=== PATIENT | female | born 1970 | race Caucasian/White ===

== ENCOUNTER 2018-02-12 20:02 | Inpatient (IN) | payer OTHER ==
[2018-02-12] MEDS ORDERED: NITROGLYCERIN (SL) 0.4 MG TAB SL (21:30)
[2018-02-12] MEDS ORDERED: ONDANSETRON 4 MG INJ IV (21:30)
[2018-02-12] MEDS ORDERED: ACETAMINOPHEN 325 MG TAB PO (21:30)
[2018-02-12] MEDS ORDERED: DOCUSATE SODIUM 100 MG CAP PO (21:30)
[2018-02-12] MEDS ORDERED: hydrALAzine 20 MG INJ IV (21:30)
[2018-02-12] MEDS: NACL 0.9% 3 ML SYG IV (22:48)
[2018-02-13 00:34] LABS: ADD MAN DIFF? NO
[2018-02-13 00:40] LABS: WHITE BLOOD COUNT 10.2 10^3/ul (4.8-10.8)
[2018-02-13 00:40] LABS: BASOPHIL # 0.1 10^3/ul (0.0-0.1); BASOPHILS % 0.6 % (0.0-2.0); EOSINOPHILS # 0.3 10^3/ul (0.0-0.5); EOSINOPHILS % 3.2 % (0.0-7.0); HEMATOCRIT 34.2 % (37.0-47.0); HEMOGLOBIN 11.7 g/dl (12.0-16.0); LYMPHOCYTES # 2.9 10^3/ul (0.8-2.9); LYMPHOCYTES % 28.3 % (15.0-51.0); MEAN CORPUSCULAR HEMOGLOBIN 26.4 pg (29.0-33.0); MEAN CORPUSCULAR HGB CONC 34.2 g/dl (32.0-37.0); MEAN PLATELET VOLUME 10.1 fl (7.4-10.4); MONOCYTE # 0.7 10^3/ul (0.3-0.9); MONOCYTES % 6.7 % (0.0-11.0); NEUTROPHIL # 6.2 10^3/ul (1.6-7.5); NEUTROPHILS % 60.7 % (39.0-77.0); PLATELET COUNT 316 10^3/UL (140-415); RED BLOOD COUNT 4.44 10^6/ul (4.20-5.40); RED CELL DISTRIBUTION WIDTH 15.3 % (11.5-14.5)
[2018-02-13 00:52] LABS: ANION GAP 9 (8-16); BLOOD UREA NITROGEN 12 mg/dl (7-20); CALCIUM 9.9 mg/dl (8.4-10.2); CARBON DIOXIDE 28 mmol/L (21-31); CHLORIDE 105 mmol/L (97-110); CREATININE 0.68 mg/dl (0.44-1.00); GLUCOSE 117 mg/dl (70-220); POTASSIUM 3.4 mmol/L (3.5-5.1); SODIUM 139 mmol/L (135-144)
[2018-02-13] MEDS: morphine 2 MG INJ IV (01:01)
[2018-02-13] MEDS: LORAZEPAM 2 MG INJ IV ×3 (03:00→20:06)
[2018-02-13 06:38] LABS: ADD MAN DIFF? NO
[2018-02-13 06:48] LABS: BASOPHIL # 0.1 10^3/ul (0.0-0.1); BASOPHILS % 0.7 % (0.0-2.0); EOSINOPHILS # 0.3 10^3/ul (0.0-0.5); EOSINOPHILS % 3.1 % (0.0-7.0); HEMOGLOBIN 11.8 g/dl (12.0-16.0); LYMPHOCYTES % 37.8 % (15.0-51.0); MEAN CORPUSCULAR HEMOGLOBIN 26.3 pg (29.0-33.0); MEAN CORPUSCULAR HGB CONC 33.7 g/dl (32.0-37.0); MEAN PLATELET VOLUME 10.3 fl (7.4-10.4); MONOCYTE # 0.8 10^3/ul (0.3-0.9); MONOCYTES % 7.1 % (0.0-11.0); NEUTROPHIL # 5.4 10^3/ul (1.6-7.5); NEUTROPHILS % 50.9 % (39.0-77.0); PLATELET COUNT 328 10^3/UL (140-415); RED BLOOD COUNT 4.49 10^6/ul (4.20-5.40); RED CELL DISTRIBUTION WIDTH 15.4 % (11.5-14.5)
[2018-02-13 06:48] LABS: WHITE BLOOD COUNT 10.5 10^3/ul (4.8-10.8)
[2018-02-13 07:23] LABS: ALANINE AMINOTRANSFERASE 27 IU/L (13-69); ALBUMIN 3.9 g/dl (3.3-4.9); ALBUMIN/GLOBULIN RATIO 1.25; ALKALINE PHOSPHATASE 108 IU/L (42-121); ANION GAP 12 (8-16); ASPARTATE AMINO TRANSFERASE 18 IU/L (15-46); BILIRUBIN,INDIRECT 0.4 mg/dl (0-1.1); BILIRUBIN,TOTAL 0.4 mg/dl (0.2-1.3); BLOOD UREA NITROGEN 13 mg/dl (7-20); CALCIUM 9.5 mg/dl (8.4-10.2); CARBON DIOXIDE 26 mmol/L (21-31); CHLORIDE 106 mmol/L (97-110); CHOL/HDL RATIO 5.4 RATIO; CHOLESTEROL 216 mg/dl (100-200); CREATININE 0.71 mg/dl (0.44-1.00); GLUCOSE 89 mg/dl (70-220); HDL CHOLESTEROL 40 mg/dl (34-88); LDL CHOLESTEROL,CALCULATED 122 mg/dl; POTASSIUM 3.8 mmol/L (3.5-5.1); SODIUM 140 mmol/L (135-144); TRIGLYCERIDES 268 mg/dl (0-149)
[2018-02-13 07:27] LABS: HEMOGLOBIN A1C 5.5 % (0-5.9)
[2018-02-13] MEDS: ASPIRIN 81 MG TAB PO (09:30)
[2018-02-13] MEDS: PANTOPRAZOLE (EC) 40 MG TAB PO (09:30)
[2018-02-13] MEDS ORDERED: HYDROCODONE/APAP (5/325) TAB PO (10:00)
[2018-02-13] MEDS: ACET/BUTAL/CAFF TAB PO (11:26)
[2018-02-13] MEDS ORDERED: ATORVASTATIN 80 MG TAB (19:56)
[2018-02-13] MEDS: ATORVASTATIN 80 MG TAB PO (20:06)
[2018-02-14] MEDS: PANTOPRAZOLE (EC) 40 MG TAB PO (05:31)
[2018-02-14 06:00] LABS: ADD MAN DIFF? NO
[2018-02-14 06:06] LABS: MONOCYTE # 0.8 10^3/ul (0.3-0.9)
[2018-02-14 06:21] LABS: BASOPHIL # 0.1 10^3/ul (0.0-0.1); BASOPHILS % 0.5 % (0.0-2.0); EOSINOPHILS # 0.3 10^3/ul (0.0-0.5); EOSINOPHILS % 2.4 % (0.0-7.0); HEMOGLOBIN 12.7 g/dl (12.0-16.0); LYMPHOCYTES # 3.1 10^3/ul (0.8-2.9); MEAN CORPUSCULAR HGB CONC 33.4 g/dl (32.0-37.0); MEAN CORPUSCULAR VOLUME 77.7 fl (82.0-101.0); MEAN PLATELET VOLUME 10.5 fl (7.4-10.4); MONOCYTES % 6.3 % (0.0-11.0); NEUTROPHIL # 8.5 10^3/ul (1.6-7.5); NEUTROPHILS % 66.3 % (39.0-77.0); PLATELET COUNT 389 10^3/UL (140-415); RED BLOOD COUNT 4.89 10^6/ul (4.20-5.40); RED CELL DISTRIBUTION WIDTH 15.5 % (11.5-14.5)
[2018-02-14 06:21] LABS: WHITE BLOOD COUNT 12.8 10^3/ul (4.8-10.8)
[2018-02-14 06:35] LABS: IRON 33 ug/dl (35-150)
[2018-02-14 06:44] LABS: % IRON SATURATION 7 % SAT (22-52); TOTAL IRON BINDING CAPACITY 484 ug/dl (241-421)
[2018-02-14 06:56] LABS: ANION GAP 12 (8-16); BLOOD UREA NITROGEN 18 mg/dl (7-20); CALCIUM 10.1 mg/dl (8.4-10.2); CARBON DIOXIDE 25 mmol/L (21-31); CHLORIDE 108 mmol/L (97-110); CREATININE 0.71 mg/dl (0.44-1.00); GLUCOSE 104 mg/dl (70-220); MAGNESIUM 2.2 mg/dl (1.7-2.5); PHOSPHORUS 3.6 mg/dl (2.5-4.9); POTASSIUM 4.2 mmol/L (3.5-5.1); SODIUM 141 mmol/L (135-144)
[2018-02-14] MEDS: ASPIRIN 81 MG TAB PO (08:48)
[2018-02-14 15:51] LABS: FERRITIN 6.3 ng/ml (6.2-137.0)
[2018-02-14] MEDS: ATORVASTATIN 80 MG TAB PO (21:09)
[2018-02-14] MEDS: BISACODYL (EC) 5 MG TAB PO (21:09)
[2018-02-14] MEDS: ZOLPIDEM 5 MG TAB PO (22:21)
[2018-02-14] MEDS: ACETAMINOPHEN 325 MG TAB PO (22:24)
[2018-02-15] MEDS: PANTOPRAZOLE (EC) 40 MG TAB PO (06:01)
[2018-02-15 07:06] LABS: ADD MAN DIFF? NO
[2018-02-15 07:18] LABS: BASOPHIL # 0.1 10^3/ul (0.0-0.1); BASOPHILS % 0.6 % (0.0-2.0); EOSINOPHILS # 0.3 10^3/ul (0.0-0.5); EOSINOPHILS % 2.3 % (0.0-7.0); HEMATOCRIT 34.3 % (37.0-47.0); HEMOGLOBIN 11.5 g/dl (12.0-16.0); LYMPHOCYTES # 3.9 10^3/ul (0.8-2.9); LYMPHOCYTES % 28.3 % (15.0-51.0); MEAN CORPUSCULAR HEMOGLOBIN 25.7 pg (29.0-33.0); MEAN CORPUSCULAR HGB CONC 33.5 g/dl (32.0-37.0); MEAN CORPUSCULAR VOLUME 76.6 fl (82.0-101.0); MEAN PLATELET VOLUME 10.3 fl (7.4-10.4); MONOCYTE # 0.9 10^3/ul (0.3-0.9); MONOCYTES % 6.6 % (0.0-11.0); NEUTROPHIL # 8.4 10^3/ul (1.6-7.5); NEUTROPHILS % 61.5 % (39.0-77.0); PLATELET COUNT 326 10^3/UL (140-415); RED BLOOD COUNT 4.48 10^6/ul (4.20-5.40); RED CELL DISTRIBUTION WIDTH 15.6 % (11.5-14.5)
[2018-02-15 07:18] LABS: WHITE BLOOD COUNT 13.6 10^3/ul (4.8-10.8)
[2018-02-15 07:53] LABS: ANION GAP 12 (8-16); BLOOD UREA NITROGEN 17 mg/dl (7-20); CALCIUM 9.7 mg/dl (8.4-10.2); CARBON DIOXIDE 23 mmol/L (21-31); CHLORIDE 109 mmol/L (97-110); CREATININE 0.61 mg/dl (0.44-1.00); GLUCOSE 95 mg/dl (70-220); POTASSIUM 4.4 mmol/L (3.5-5.1); SODIUM 140 mmol/L (135-144)
[2018-02-15 08:09] LABS: MAGNESIUM 1.9 mg/dl (1.7-2.5)
[2018-02-15 08:09] LABS: PHOSPHORUS 3.3 mg/dl (2.5-4.9)
[2018-02-15] MEDS: ASPIRIN 81 MG TAB PO (09:01)
[2018-02-15] MEDS: LOSARTAN 50 MG TAB PO (09:02)
[2018-02-15] MEDS: ACETAMINOPHEN 325 MG TAB PO (09:09)
== END 2018-02-15 17:40 | disposition home health service (06) | DRG 57 ==
LOC: 6WM 20:02
DX: G81.91 Hemiplegia, unspecified affecting right dominant side (principal); G43.909 Migraine, unspecified, not intractable, without status migrainosus; E78.5 Hyperlipidemia, unspecified; I10 Essential (primary) hypertension; Z72.0 Tobacco use; R47.1 Dysarthria and anarthria; R47.02 Dysphasia; D50.9 Iron deficiency anemia, unspecified; F45.0 Somatization disorder; Z86.73 Personal history of transient ischemic attack (TIA), and cerebral infarction without residual deficits
CPT/HCPCS: 70551; 80048; 80053; 80061; 82728; 83036; 83540; 83735; 84100; 84443; 84703; 85025; 92610; 93306; 97116; 97161; 97165; 97530

== ENCOUNTER → 2018-10-25 | Outpatient (CLI) | payer OTHER | END | disposition home or self-care (01) | LOC: EEG 09:47 | DX: R42 Dizziness and giddiness (principal) | CPT/HCPCS: 95819 ==